=== PATIENT | male | born 1955 | race Caucasian/White ===

== ENCOUNTER 2021-01-10 10:37 | Emergency (ER) | payer OTHER, SELFPAY ==
--- NOTE | ~2021-01-10 | XR_ITS ---
EXAMINATION: XR chest 1V portable EXAM DATE: 01/10/2021 10:56 INDICATION: Mid chest pain/HX OF 2 stents placed one year ago. TECHNIQUE: Portable AP frontal chest x-ray was obtained. Comparison is made to prior examination from 01/01/2014. FINDINGS: There is right basilar granuloma. The lungs are otherwise clear. Mild cardiomegaly. Mild pulmonary vascular congestion. No confluent consolidation, pneumothorax or pleural effusion suspected . There are no osseous abnormalities identified. IMPRESSION: Mild cardiomegaly and congestive changes. Reviewed, dictated and finalized at location A. MANAGEMENT PROFESSOR
--- NOTE | 2021-01-10 10:39 | ECG_ITS ---
Measurements Intervals [place] Rate: 54 P: -9 NC: 187 QRS: -12 QRSD: 101 T: 114 QT: 390 QTc: 372 Interpretive Statements SINUS BRADYCARDIA INFERIOR ST ELEVATION MYOCARDIAL INFARCT- ACUTE POSTERIOR INFARCT- ACUTE ABNORMAL ECG Electronically Signed On 01-10-2021 19:54:38 [employer] by Edwin Lazar D.O.
[2021-01-10 10:45] VITALS: BP 148/91; PULSE 65; RESP 24; TEMP 37.3; O2SAT 97
[2021-01-10] MEDS: ASPIRIN 81 MG CHEWABLE TABLET 324 MG PO (10:49)
--- NOTE | 2021-01-10 10:49 | ED.CHESTPAIN ---
HPI - Chest Pain General Chief Complaint: Chest Pain Stated Complaint: chest pain Time Seen by Provider: 01/10/21 10:49 Source: patient Mode of arrival: ambulatory Limitations: no limitations History of Present Illness HPI narrative: 65-year-old male with a history of hypertension, diabetes mellitus, aortic aneurysm measuring 4.7 cm recently,coronary artery disease status post stent 1 year ago presented to the ER with -- anterior chest pain which started 1hour ago and radiates to both arms. This pain is similar to his previous cardiac pain when he had his stents put in. The pain started while he was standing his ceiling. Pain is associated with shortness of breath. He rates the pain as 5/10 and it is continuous. 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 Onset (ago): hour(s) ( 1 hour ago) Prior episodes: Yes Pain location: other ( across the anterior chest) Pain radiation: right arm and left arm Severity: moderate Pain scale (0-10): 5 Quality: aching Relieving factors: nothing Exacerbating factors: nothing Associated symptoms: dyspnea Treatment prior to arrival: none Risk Factors Coronary artery disease risk factors: diabetes, hyperlipidemia and family history of CAD before age 50 Thoracic aortic dissection risk factors: history of thoracic aortic aneurysm and longstanding hypertension Related Data Allergies Allergy/AdvReac Type Severity Reaction Status Date / Time No Known Allergies Allergy Verified 01/10/21 11:17 Review of Systems Review of Systems: All systems reviewed & are unremarkable except as noted in HPI and below Constitutional: Constitutional: Reports as per HPI Eyes: Eyes: Reports as per HPI ENT: Reports system reviewed and no additional complaints, except as documented Cardiovascular: Cardiovascular: Reports as per HPI Respiratory: Respiratory: Reports as per HPI Gastrointestinal: Gastrointestinal: Reports as per HPI Genitourinary: Genitourinary: Reports no additional male genitourinary complaints Musculoskeletal: Musculoskeletal: Reports no additional musculoskeletal complaints Integumentary/Breasts: Skin/Breast: Reports system reviewed and no additional complaints, except as docu Neurologic: Reports system reviewed and no additional complaints, except as documented Psychiatric: Psychiatric: Reports no additional psychiatric complaints Endocrine: Endocrine: Reports no additional endocrine complaints Hematologic/Lymphatic: Hematologic/Lymphatic: Reports no additional hematologic/lymphatic complaints Allergic/Immunologic: Allergic/Immunologic: Reports no additional allergic/immunologic complaints FOR[facility]LY [facility], [facility] Past Medical History Medical History (Updated 01/10/21 @ 11:27 by Carter Chan MD) Aortic aneurysm Coronary artery disease Diabetes mellitus Dyslipidemia Hypertension Surgical History Surgical History (Updated 01/10/21 @ 11:16 by Carter Chan MD) Stented coronary artery Family History Family History (Updated 01/10/21 @ 11:16 by Carter Chan MD) Sibling Heart disease Social History Social History (Updated 01/10/21 @ 11:17 by Carter Chan MD) Social History: nonsmoker Exam Const: General: cooperative, healthy appearing and anxious Nutritional Appearance: obese Orientation/consciousness: oriented to person, oriented to place and oriented to time Limitations: no limitations HENMT: Head: normal to inspection Ears: hearing grossly normal bilaterally and external ears normal General nose exam: Normal external nose present Face and sinus: normal facial exam Mouth: Yes Normal oral and palatal mucosa present Throat: posterior oropharynx normal Eyes: General: appearance normal, both eyes and all related structures Eyelids: eyelids normal Conjunctivae: conjunctivae normal Sclera: sclerae normal Cornea: corneas normal Pupils: Equal, round and reactive pupils present Neck: Neck: normal visual inspec
[2021-01-10 10:50] VITALS: BP 149/85; PULSE 77; RESP 20; O2SAT 96
[2021-01-10 10:58] LABS: Basophils Absolute Auto 0.07 K/mm3 (0.00-0.10); Basophils Percent Auto 0.8 % (0.0-1.0); Eosinophils Absolute Auto 0.18 K/mm3 (0.02-0.50); Eosinophils Percent Auto 2.1 % (1.0-6.0); Hematocrit 45.4 % (37.0-46.0); Hemoglobin 14.9 g/dL (12.4-15.3); Immature Granulocyte Absolute 0.02 K/mm3 (0.00-0.00); Immature Granulocyte Percent A 0.2 % (0.0-0.0); Immature Platelet Fraction Pct 3.7 % (1.0-7.0); Lymphocytes Absolute Auto 3.41 K/mm3 (1.10-4.50); Lymphocytes Percent Auto 39.9 % (18.0-42.0); Mean Corpuscular HGB Conc 32.8 g/dL (32.0-36.0); Mean Corpuscular Hemoglobin 29.6 pg (27.0-31.0); Mean Corpuscular Volume 90.1 fL (78.0-102.0); Monocytes Absolute Auto 0.71 K/mm3 (0.10-0.90); Monocytes Percent Auto 8.3 % (2.0-11.0); Neutrophils Absolute Auto 4.2 K/mm3 (1.7-7.2); Neutrophils Percent Auto 48.7 % (50.0-70.0); Platelet Count Result 133 K/mm3 (150-420); Red Blood Count 5.04 M/mm3 (4.70-6.10); Red Cell Distribution Width 13.9 % (11.6-14.4); White Blood Count 8.5 K/mm3 (4.8-10.8)
[2021-01-10] MEDS: HEPARIN SODIUM 5,000 UNITS/ML VIAL 5000 UNITS (10:58)
[2021-01-10 11:00] VITALS: BP 136/83; PULSE 65; RESP 20; O2SAT 97
[2021-01-10 11:08] LABS: INR 1.2; Partial Thromboplastin Time 24.8 SEC (23.90-30.70); Prothrombin Time 12.6 Seconds (9.50-12.10)
[2021-01-10 11:16] LABS: Alanine Aminotransferase 36 U/L (16-63); Albumin Level 3.5 g/dL (3.4-5.0); Alkaline Phosphatase 55 U/L (46-116); Anion Gap 10 mmol/L (8-16); Aspartate Amino Transferase 29 U/L (15-37); Bilirubin,Total 1.2 mg/dL (0.00-1.00); Blood Urea Nitrogen 16 mg/dL (7-18); Calcium 8.8 mg/dL (8.5-10.1); Carbon Dioxide 27 mmol/L (21-32); Chloride 100 mmol/L (98-108); Estimated CRCL calculation 71 ml/min; Estimated Glomerular Filt Rate > 60; Glucose 159 mg/dL (70-99); NT Pro B Type Natriuretic Pept 41 pg/mL (0-125); Osmolality Calculated 288 mOsm/kg (285-295); Potassium 3.4 mmol/L (3.5-5.1); Sodium 137 mmol/L (136-145); Total Protein 7.7 g/dL (6.4-8.2)
[2021-01-10] MEDS: MORPHINE SULFATE (*CRX) 2 MG/ML INJ (11:16)
[2021-01-10] MEDS: ONDANSETRON INJ 4 MG/2 ML VIAL (11:16)
[2021-01-10 11:18] LABS: Troponin I 99.4 ng/L (0.00-60.4)
[2021-01-10 11:20] VITALS: BP 138/83; PULSE 68; RESP 18; O2SAT 96
[2021-01-10] MEDS: POTASSIUM CHLORIDE 20 MEQ TABLET 40 MEQ (11:24)
[2021-01-10 11:34] VITALS: BP 149/85; PULSE 79; RESP 18; O2SAT 96
== END 2021-01-10 11:30 | disposition short-term general hospital (02) ==
PROVIDERS: Emergency Provider Internal Medicine Critical Care Medicine
DX: I21.19 ST elevation (STEMI) myocardial infarction involving other coronary artery of inferior wall (principal); E87.6 Hypokalemia; R06.02 Shortness of breath
CPT/HCPCS: 36415; 71045; 80053; 83880; 84484; 85025; 85055; 85610; 85730; 93005; 96374; 96375; 99285; 99291; A9270; J1644; J2270; J2405

== ENCOUNTER 2021-01-10 13:42 | Inpatient (IN) | payer OTHER, MEDICARE, SELFPAY ==
[2021-01-10] VITALS (13 sets, daily range): BP systolic 89–108; BP diastolic 56–79; PULSE 52–66; RESP 12–22; TEMP 36.6; O2SAT 92–99; BMI 39.1
--- NOTE | ~2021-01-10 | CT_ITS ---
EXAMINATION: CTA chest EXAM DATE: 01/10/2021 14:57 INDICATION: Aortic Aneurysm, reportedly last measurement of 4.7 cm at a [place] [facility] 3 months ago. TECHNIQUE: Spiral CT of the chest following intravenous injection of 75 mL Omnipaque 350. Axial, cor onal and sagittal images of the chest were reviewed. Coronal maximum intensity pixel images of chest reviewed. Maximum intensity projection 3-D reconstructions of the aorta were created by the araceli edwards on dedicated workstation. The dose-length product (DLP) for this examination was 956.86 mGy-cm . The exposure was tailored according to patient size (auto mA exposure control), and iterative toro nstruction (ASIR) was used as additional dose reduction technique. There is no prior study for efrain rison. FINDINGS: The ascending aorta measures 4.7 cm maximal dimension. Pulmonary Arteries are relatively we ll opacified, no pulmonary emboli suspected. I reviewed these findings with Song Gurrola MD in my of fice about 20 minutes ago. Bibasilar subpleural banding, probably glass opacity most consistent with atelectasis. Some scattered granulomata. There are no pleural or pericardial effusions. Tracheobronchial tree is patent. Th ere is no mediastinal, hilar or axillary lymphadenopathy. There is no pneumothorax. Heart normal in size. There is moderate coronary arterial calcification, arterial sclerosis. Probable right nep hrolithiasis. There is mild thoracic spondylosis without osteoblastic or osteolytic lesions identifi ed. IMPRESSION: 1. Abdominal aortic 4.7 cm aneurysm. No rupture, dissection or pulmonary emboli. 2. Bilateral subsegmental atelectasis. 3. Probable right nephrolithiasis. Reviewed, dictated and finalized at location [facility] IMPRESSION: 1. Abdominal aortic 4.7 cm aneurysm. No rupture, dissection or pulmonary embol i. 2. Bilateral subsegmental atelectasis. 3. Probable right nephrolithiasis.
--- NOTE | 2021-01-10 12:08 | P.SEDATION_ITS ---
Moderate Sedation Note-Pt Data Patient Data Allergies Allergy/AdvReac Type Severity Reaction Status Date / Time No Known Allergies Allergy Verified 01/10/21 11:17 Sedation/Anesthesia: No previous sedation/anesthesia problems (including family history). [facility] Past Medical History Medical History (Updated 01/10/21 @ 11:27 by Carter Chan MD) Aortic aneurysm Coronary artery disease Diabetes mellitus Dyslipidemia Hypertension Surgical History Surgical History (Updated 01/10/21 @ 11:16 by Carter Chan MD) Stented coronary artery Family History Family History (Updated 01/10/21 @ 11:16 by Carter Chan MD) Sibling Heart disease Social History Social History (Updated 01/10/21 @ 11:17 by Carter Chan MD) Social History: nonsmoker Mod Sed Physical Exam Physical Exam Pre Procedural Exam: Normal: Airway Hours since solid foods: 5 Hours since liquid intake: 5 Mallampati Classification: class II ASA Classification/Sedation ASA Classification/Sedation ASA Class: V Emergent: Yes Risks: Risks, benefits and alternatives explained and patient/family accepted plan for sedation. Patient re-evaluated immediately prior to sedation.
--- NOTE | 2021-01-10 12:09 | PM.IMHP ---
H&P: HPI History of Present Illness Date/Time: 01/10/21 12:09 Date of service: 01/10/2021 Chief complaint: Chest pain that started about 90 minutes prior to arrival to the local ER HPI: 65-year-old male with CAD, history of PCI/ stenting - at [facility], intervention report not available; ascending aortic aneurysm as per patient, hypertension , type 2 diabetes mellitus, dyslipidemia. Patient gives history of CAD and PCI/stenting x2-intervention report not available. He also gives history of ascending aortic aneurysm, last in diameter as per patient was 4.7 cm. Patient states that he follows up with [facility] for his cardiovascular care. Patient presented to [facility] with complaints of chest pain that started about 90 minutes prior to arrival. His symptoms were associated with shortness of breath. He denied any palpitation, dizziness or syncope. His EKG on my personal evaluation showed sinus rhythm, inferior ST-elevation [place]. Patient was transferred to [facility] for primary PCI. Emergent coronary angiogram showed hazy subtotal occlusion of proximal RCA in the very tortuous segment; mild plaque in the proximal LAD; patent previously placed stent in the OM branch. Patient underwent primary PCI/ placement of 3.5 x 30 mm Biotronik sirolimus eluting stent in the proximal RCA. Final angiogram showed good results in the stented segment of the RCA. There was slightly sluggish blood flow in PDA and PLV branches. LV gram showed basal inferior hypokinesis; Overall LVEF normal at 60%. Chief Complaint: chest pain Review of Systems Review of Systems: General: Negative for fever, chills, fatigue Psychological: Negative for anxiety, depression Ophthalmic: negative for loss of vision ENT: Negative for epistaxis, headaches Allergy and immunology: Negative for hives, nasal congestion Hematologic and lymphatic: Negative for overt bleeding problems Endocrine: Negative for hot flashes, palpitations Respiratory: Negative for cough, hemoptysis Cardiovascular: Positive for chest pain, shortness of breath Gastrointestinal: Negative for abdominal pain, nausea, vomiting, hematochezia Musculoskeletal: Negative for myalgia, joint pains Neurological: Negative for weakness Dermatological: Negative for rash, skin discoloration PMFSH Past Medical History Medical History Aortic aneurysm Coronary artery disease Diabetes mellitus Dyslipidemia Hypertension Surgical History Surgical History Stented coronary artery Family History Family History (Updated 01/10/21 @ 13:12 by Marcellus Smith MD) Sibling Heart disease Acute myocardial infarction Social History Social History (Updated 01/10/21 @ 13:12 by Marcellus Smith MD) Social History: nonsmoker Smoking status: Never smoker Alcohol intake: current Substance use: never Living arrangements: with family Meds Home Medications and Allergies Allergies Allergy/AdvReac Type Severity Reaction Status Date / Time No Known Allergies Allergy Verified 01/10/21 11:17 Exam Narrative: PHYSICAL EXAMINATION: GENERAL: Alert, anxious MENTAL STATUS: anxious EYES: Extraocular movements intact, no pallor EARS: External ears appear normal, hearing grossly normal NOSE: Normal and patent, no discharge MOUTH: Mucous membranes moist, tongue normal NECK: Supple, no JVD CHEST: Good respiratory effort, clear to auscultation HEART: Normal rate, regular rhythm, slightly distant heart sounds ABDOMEN: Soft, protuberant, nontender NEUROLOGICAL: Alert, oriented, normal speech, no gross motor deficits MUSCULOSKELETAL: No major deformity, no amputation EXTREMITIES: No pedal edema, no clubbing, no cyanosis SKIN: no rash on the exposed area, no cyanosis PSYCHIATRIC: anxious Assessment and Plan Assessment and plan (1) Acute ST elevation myocardial infarction (S
--- NOTE | 2021-01-10 13:18 | WPDCARDPROC ---
Cardiac Cath Procedure Note Date of procedure:: 01/10/21 Performing physician:: Marcellus Smith MD Procedure Procedure note:: EMERGENT CARDIAC CATHETERIZATION AND PERCUTANEOUS CORONARY INTERVENTION REPORT DATE OF PROCEDURE: 01/10/2021 INDICATION FOR PROCEDURE: ACUTE CORONARY SYNDROME-INFERIOR ST-ELEVATION MYOCARDIAL INFARCTION BRIEF CLINICAL HISTORY: 65-year-old male with CAD, history of PCI/ stenting - at [facility], intervention report not available; ascending aortic aneurysm as per patient, hypertension , type 2 diabetes mellitus, dyslipidemia. Patient gives history of CAD and PCI/stenting x2-intervention report not available. He also gives history of ascending aortic aneurysm, last in diameter as per patient was 4.7 cm. Patient states that he follows up with [facility] for his cardiovascular care. Patient presented to [facility] with complaints of chest pain that started about 90 minutes prior to arrival. His symptoms were associated with shortness of breath. He denied any palpitation, dizziness or syncope. His EKG on my personal evaluation showed sinus rhythm, inferior ST-elevation [place]. Patient was transferred to [facility] for primary PCI. PROCEDURES PERFORMED: 1. Left heart catheterization- Selective left and right coronary angiogram; left ventriculogram and hemodynamic assessment 2. Percutaneous coronary intervention- balloon angioplasty and stenting of subtotal occlusion of proximal RCA using a Biotronik orsiri 3.5 x 30 mm everolimus eluting stent. 3. Selective right common femoral angiogram and deployment of Angio-Seal hemostatic device 4. Moderate sedation-CPT code 04307 MODERATE SEDATION: Midazolam 2 mg; fentanyl 50 mcg. Start time 1213 , Stop time 1257 ; Total [id number] time 44 minutes; Arianna Escamilla RN was trained observer for moderate sedation. ACCESS SITE: Right common femoral artery PROCEDURE NOTE: After obtaining informed consent, patient was brought to catheterization lab and prepped and draped in a usual sterile manner. After local anesthesia with lidocaine, right common femoral artery access was taken with micropuncture needle followed by insertion of a 6 [place] sheath. Selective left and right coronary angiogram was performed using 5 [place] JL5 and JR4 Guide catheters respectively. Orthogonal views were taken. After completion of PCI, a 5 [place]an pigtail catheter was advanced in the LV cavity and was flushed with normal saline. LV pressure measurement was performed. After this, left ventriculogram was performed. The catheter was flushed again, and gradient across the aortic valve was measured on the pullback of the catheter. Selective right common femoral angiogram was performed after PCI followed by successful deployment of Angio-Seal vascular closure device. FINDINGS: LEFT MAIN CORONARY: the left main coronary artery is a medium caliber vessel, no angiographically significant focal stenosis. LEFT ANTERIOR DESCENDING ARTERY: The LAD is a medium caliber vessel in the proximal and upper mid segment; becomes smaller caliber, tortuous vessel in the lower mid and distal segment and reaches LV apex. Mild diffuse plaque is seen in the proximal segment. Diagonal branches are small caliber vessels. LEFT CIRCUMFLEX ARTERY: The left circumflex artery is a medium to large caliber vessel. Diffuse 30-40% stenosis seen in the proximal segment. Om 1 branch is a medium caliber vessel with a patent stent, mild narrowing at the ostium. OM 2 branch is a medium caliber vessel valve mild diffuse disease in the proximal segment. OM3 is a medium caliber vessel without significant focal stenosis. RIGHT CORONARY ARTERY: The RCA is a medium to large caliber vessel. There is hazy, 99% thrombotic occlusion in the proximal segment. The proximal segment is very tortuous. Minor plaque is seen in the mid segment. The vessel gives rise to small to medium caliber PDA and small caliber PLV branches. LEFT VENTR
--- NOTE | 2021-01-10 13:34 | ADMGEN ---
This patient, Bam Gauthier, was admitted to ICU-9 at 1320. Patient/family oriented to hospital policies and general routines including ID bracelet, bed and alarms, visiting hours, pain management, procedures, bathroom and other care routines, personal items, smoking policy, room service/diet, and visiting hours. Information on how to activate the Rapid Response Team has been discussed. Patient/Family are encouraged to report perceived risks to care and to ask questions if they do not understand what they are told or what they should do.
--- NOTE | 2021-01-10 13:47 | WPDCNINT ---
Assessment and Plan Assessment and plan (1) Chest pain: Code(s): R07.9 - Chest pain, unspecified Status: Acute Assessment and Plan: Persistent chest pain despite PCI. I gave patient 2 nitroglycerin tablets which did not help. He states he has aortic aneurysm and last recorded size was 4.7 cm 3 months ago Considering his pain has not fully resolved after PCI, we will aortic dissection by doing stat CTA chest. Case discussed with Dr. Smith who agrees with the plan. Continue IV fluids to minimize risk of kidney considering the contrast load. I explained to the patient that administration of contrast does increase the risk of kidney injury but at this time the benefit of ruling out aortic dissection is much higher than the potential risk. I also repeated EKG which showed persistent ST elevation in lead 2 3 and AVF. I discussed this with Dr. 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 (2) Acute ST elevation myocardial infarction (STEMI) of inferior wall: Code(s): I21.19 - ST elevation (STEMI) myocardial infarction involving other coronary artery of inferior wall Status: Acute Assessment and Plan: S/P Left heart catheterization- Selective left and right coronary angiogram; left ventriculogram and hemodynamic assessment. Percutaneous coronary intervention- balloon angioplasty and stenting of subtotal occlusion of proximal RCA ICU telemetry monitoring Check Echocardiogram Dual antiplatelet therapy Continue statin and beta-avril Hold PAUL-inhibitor for now to minimize risk of MEGA (3) Ascending aortic aneurysm: Code(s): I71.2 - Thoracic aortic aneurysm, without rupture Status: Acute Assessment and Plan: See above (4) Diabetes mellitus: Code(s): E11.9 - Type 2 diabetes mellitus without complications Status: Inactive Assessment and Plan: Sliding scale insulin (5) Hypertension: Code(s): I10 - Essential (primary) hypertension Status: Inactive Assessment and Plan: Blood pressure is adequately controlled this time. Continue beta-avril Monitor and treat accordingly (6) Dyslipidemia: Code(s): E78.5 - Hyperlipidemia, unspecified Status: Inactive Assessment and Plan: Continue Lipitor (7) Hypokalemia: Code(s): E87.6 - Hypokalemia Status: Acute Assessment and Plan: Replace potassium Additional Plan DVT prophylaxis -SCDs for now until CT results are back Code Status - Full Code Total Critical Care Time - 35 minutes Due to a high probability of clinically significant, life threatening deterioration, the patient required my highest level of preparedness to intervene emergently and I personally spent this critical care time directly and personally managing the patient. This critical care time included obtaining a history; examining the patient; pulse oximetry; ordering and review of studies; arranging urgent treatment with development of a management plan; evaluation of patient's response to treatment; frequent reassessment; and discussions with other providers. It was exclusive of separately billable procedures and treating other patients and teaching time. Please see Assessment and Plan section and the rest of the note for further information on patient assessment and treatment Management Nurse Rn Consult Note Consult date: 01/10/21 HPI: Bam Gauthier is a 65 year old male with CAD, history of PCI/ stenting - at [facility], ascending aortic aneurysm which is 4.7 cm as per patient, hypertension , type 2 diabetes mellitus, dyslipidemia who gets most of his care at [facility] presented to start on ER with chief complaint of chest pain. 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 He states the pain was 4/10 severe in the beginning and increase up to 8/10 by the time he reached ER. Pain was from left right shoulder burning in quality no radiation no aggravating or relie
[2021-01-10] MEDS: SODIUM CHLORIDE 0.9% IV 1,000 ML 125 ML IV CONT (14:02)
[2021-01-10] MEDS: NITROGLYCERIN SL 0.4 MG TABLET (14:05)
[2021-01-10] MEDS: NITROGLYCERIN SL 0.4 MG TABLET SUBLINGUAL (14:14)
--- NOTE | 2021-01-10 14:26 | ECG_ITS ---
Measurements Intervals [place] Rate: 69 P: -11 IL: 143 QRS: 16 QRSD: 106 T: 95 QT: 320 QTc: 344 Interpretive Statements SINUS RHYTHM INFERIOR ST ELEVATION MYOCARDIAL INJURY- ACUTE BASELINE ARTIFACT- I, II, III ABNORMAL ECG Electronically Signed On 01-11-2021 20:31:51 RUG HOOKER by Edwin Lazar D.O.
[2021-01-10] MEDS: MORPHINE SULFATE (*CRX) 2 MG/ML INJ IV PUSH (14:27)
[2021-01-10] MEDS: POTASSIUM CHLORIDE 20 MEQ TABLET 40 MEQ PO (15:00)
--- NOTE | 2021-01-10 15:30 | PM.TDS ---
Transfer Discharge Sum: Prov Provider Date of admission: 01/10/21 13:42 Primary care physician: [facility] Admitting clinician: Marcellus Smith MD Consults: 01/10/21 Consult to Physician Routine Comment: Consulting Provider: Song Gurrola Reason for consultation: post stemi management Has provider been notified: Yes DS: Admitting Diagnosis Discharge Date 01/10/2021 Admitting Diagnosis STEMI DS: Discharge Diagnosis Discharge Diagnosis (1) Acute ST elevation myocardial infarction (STEMI) of inferior wall: Code(s): I21.19 - ST elevation (STEMI) myocardial infarction involving other coronary artery of inferior wall Status: Acute (2) Chest pain: Code(s): R07.9 - Chest pain, unspecified Status: Acute (3) Ascending aortic aneurysm: Code(s): I71.2 - Thoracic aortic aneurysm, without rupture Status: Acute (4) Hypokalemia: Code(s): E87.6 - Hypokalemia Status: Acute (5) Diabetes mellitus: Code(s): E11.9 - Type 2 diabetes mellitus without complications Status: Acute (6) Coronary artery disease: Code(s): I25.10 - Atherosclerotic heart disease of [place] coronary artery without angina pectoris Status: Inactive (7) Dyslipidemia: Code(s): E78.5 - Hyperlipidemia, unspecified Status: Acute (8) Hypertension: Code(s): I10 - Essential (primary) hypertension Status: Acute Transfer Discharge Sum: Med Medications Active and Home Medications: Home Medications albuterol sulfate [Proventil HFA] 2 puff INHALATION QID PRN 01/10/21 [History Confirmed 01/10/21] alogliptin 25 mg PO DAILY 01/10/21 [History Confirmed 01/10/21] ascorbate calcium (vitamin C) 500 mg PO DAILY 01/10/21 [History Confirmed 01/10/21] aspirin 81 mg PO DAILY 01/10/21 [History Confirmed 01/10/21] atorvastatin 80 mg PO HS 01/10/21 [History Confirmed 01/10/21] cetirizine [All Day Allergy (cetirizine)] 10 mg PO DAILY 01/10/21 [History Confirmed 01/10/21] cholecalciferol (vitamin D3) [Vitamin D3] 50 mcg PO DAILY 01/10/21 [History Confirmed 01/10/21] hydrochlorothiazide 12.5 mg PO DAILY 01/10/21 [History Confirmed 01/10/21] metformin 1,000 mg PO BID 01/10/21 [History Confirmed 01/10/21] metoprolol succinate 50 mg PO DAILY 01/10/21 [History Confirmed 01/10/21] potassium chloride 10 meq PO DAILY 01/10/21 [History Confirmed 01/10/21] senna-docusate sodium 1 tablet PO HS 01/10/21 [History Confirmed 01/10/21] Active Medications Aspirin (Aspirin 81 Mg Enteric Tablet) 81 mg PO QAM JOSIE Atorvastatin Calcium (Atorvastatin 40 Mg Tablet) 80 mg PO DAILY [facility] Dextrose (Dextrose 50% 25 Gm/50 Ml Syringe) 12.5 gm IV PUSH PRN PRN; Protocol PRN Reason: Hypoglycemia Glucagon (Glucagon For Inj 1 Mg Vial) 1 mg IM PRN PRN; Protocol PRN Reason: Hypoglycemia Glucose (Glucose Oral Gel 15 Gm Of Glucse In 37.5 Gm Tube) 15 gm PO PRN PRN; Protocol PRN Reason: Hypoglycemia Sodium Chloride (Normal Saline Iv) 1,000 mls @ 125 mls/hr IV CONT .Q8H ONE Stop: 01/10/21 21:16 Last Admin: 01/10/21 14:02 Dose: 125 mls/hr Documented by: Dextrose (Dextrose 5% 1,000 Ml) 1,000 mls @ 100 mls/hr IVPB PRN PRN; Protocol PRN Reason: Hypoglycemia Insulin Aspart (Insulin Aspart (*Bkc) 100 Units/Ml) 2 - 5 units SUB-Q ACHS JOSIE; Protocol Metoprolol Tartrate (Metoprolol Tartrate 12.5 Mg Tablet) 12.5 mg PO Q12HR [facility] Morphine Sulfate (Morphine Sulfate (*Crx) 2 Mg/Ml Inj) 2 mg IV PUSH Q2H PRN PRN Reason: Pain Rated 7-10 Nitroglycerin (Nitroglycerin Sl 0.4 Mg Tablet) 0.4 mg SUBLINGUAL Q5MIN PRN PRN Reason: Chest Pain Last Admin: 01/10/21 14:14 Dose: 0.4 mg Documented by: Ticagrelor (Ticagrelor 90 Mg Tablet) 90 mg PO Q12HR [facility] Transfer Discharge Sum: Hosp Hospital Course Hospital course: Bam Gauthier is a 65 year old male male with CAD, history of PCI/ stenting - at [facility], ascending aortic aneurysm which is 4.7 cm as per patient, hypertension , type 2 diabetes mellitus, dyslipidemia
--- NOTE | 2021-01-10 18:58 | PC.NURSE ---
This patient, Bam Gauthier, was transferred to [[facility] room 20 ] on 01/10/21 at 1858. Personal belongings sent with patient. Report given to [ cathy patton]. Appropriate documentation sent with patient.
== END 2021-01-10 19:00 | disposition short-term general hospital (02) | DRG 247 ==
LOC: ANHICU 13:43
PROVIDERS: Admitting Provider Internal Medicine Cardiovascular Disease; Visit Provider Internal Medicine
PROC: 4A023N7 Measurement of Cardiac Sampling and Pressure, Left Heart, Percutaneous Approach (ICD-10-PCS; CPT 93452; principal; 2021-01-10 12:10)
PROC: 027034Z Dilation of Coronary Artery, One Artery with Drug-eluting Intraluminal Device, Percutaneous Approach (ICD-10-PCS; 2021-01-10 12:10)
PROC: 027034Z Dilation of Coronary Artery, One Artery with Drug-eluting Intraluminal Device, Percutaneous Approach (ICD-10-PCS; 2021-01-10 12:10)
DX: I21.19 ST elevation (STEMI) myocardial infarction involving other coronary artery of inferior wall (principal); I25.10 Atherosclerotic heart disease of native coronary artery without angina pectoris; E11.9 Type 2 diabetes mellitus without complications; E78.5 Hyperlipidemia, unspecified; I10 Essential (primary) hypertension; Z95.5 Presence of coronary angioplasty implant and graft; I71.2 Thoracic aortic aneurysm, without rupture; E87.6 Hypokalemia
CPT/HCPCS: 71275; 93005; 93458; A9270; C1725; C1760; C1769; C1874; C1887; C1894; C9606; G0269; J0461; J0583; J1644; J2250; J2270; J3010; J7030; J7040; Q9967